=== PATIENT | male | born 1965 | race Caucasian/White ===

== ENCOUNTER 2018-07-18 01:26 | Emergency (ER) | payer OTHER ==
[2018-07-18 01:50] LABS: ADD MAN DIFF? NO
[2018-07-18 01:53] LABS: WHITE BLOOD COUNT 5.9 10^3/ul (4.8-10.8)
[2018-07-18 01:53] LABS: BASOPHIL # 0.1 10^3/ul (0.0-0.1); BASOPHILS % 0.8 % (0.0-2.0); EOSINOPHILS # 0.2 10^3/ul (0.0-0.5); EOSINOPHILS % 2.7 % (0.0-7.0); HEMATOCRIT 24.4 % (42.0-52.0); LYMPHOCYTES # 0.9 10^3/ul (0.8-2.9); LYMPHOCYTES % 15.8 % (15.0-51.0); MEAN CORPUSCULAR HEMOGLOBIN 28.1 pg (29.0-33.0); MEAN CORPUSCULAR HGB CONC 32.8 g/dl (32.0-37.0); MEAN CORPUSCULAR VOLUME 85.6 fl (82.0-101.0); MEAN PLATELET VOLUME 10.4 fl (7.4-10.4); MONOCYTE # 0.4 10^3/ul (0.3-0.9); NEUTROPHIL # 4.3 10^3/ul (1.6-7.5); NEUTROPHILS % 73.4 % (39.0-77.0); PLATELET COUNT 265 10^3/UL (140-415); RED BLOOD COUNT 2.85 10^6/ul (4.70-6.10); RED CELL DISTRIBUTION WIDTH 11.9 % (11.5-14.5)
[2018-07-18 02:13] LABS: ALANINE AMINOTRANSFERASE 21 IU/L (13-69); ALBUMIN 2.4 g/dl (3.3-4.9); ALKALINE PHOSPHATASE 53 IU/L (42-121); ANION GAP 5 (5-13); ASPARTATE AMINO TRANSFERASE 10 IU/L (15-46); BILIRUBIN,INDIRECT 0.2 mg/dl (0-1.1); BILIRUBIN,TOTAL 0.2 mg/dl (0.2-1.3); BLOOD UREA NITROGEN 69 mg/dl (7-20); CALCIUM 7.7 mg/dl (8.4-10.2); CARBON DIOXIDE 22 mmol/L (21-31); CHLORIDE 107 mmol/L (97-110); CREATININE 2.89 mg/dl (0.61-1.24); Estimated GFR 23 mL/min (>60); GLUCOSE 294 mg/dl (70-220); POTASSIUM 4.8 mmol/L (3.5-5.1); SODIUM 134 mmol/L (135-144); TOTAL PROTEIN 4.8 g/dl (6.1-8.1)
[2018-07-18 02:24] LABS: TROPONIN-I < 0.012 ng/ml (0.000-0.120)
[2018-07-18 03:17] LABS: URINE BLOOD (Dip) POC Trace-lysed (NEGATIVE); URINE KETONES (Dip) POC Negative (NEGATIVE); URINE LEUKOCYTE EST (Dip) POC Negative (NEGATIVE); URINE NITRITE (Dip) POC Negative (NEGATIVE); URINE TOTAL PROTEIN POC 3+ (NEGATIVE)
== END 2018-07-18 05:33 | disposition home or self-care (01) ==
LOC: E/R 01:26
DX: R55 Syncope and collapse (principal); I12.9 Hypertensive chronic kidney disease with stage 1 through stage 4 chronic kidney disease, or unspecified chronic kidney disease; N18.9 Chronic kidney disease, unspecified; E11.22 Type 2 diabetes mellitus with diabetic chronic kidney disease; Z79.84 Long term (current) use of oral hypoglycemic drugs
CPT/HCPCS: 36415; 70450; 71045; 80053; 81003; 82962; 84484; 85025; 93005; 99285-25

== ENCOUNTER 2018-07-19 14:46 | Inpatient (IN) | payer OTHER ==
[2018-07-19] MEDS: SOD CHLORIDE 0.9% 500 ML IV (15:03)
[2018-07-19] MEDS: ASPIRIN 325 MG TAB PO (15:03)
[2018-07-19] MEDS: DILTIAZEM-D5W 125MG/125ML DRIP 125 ML IV (15:16)
[2018-07-19] MEDS: DILTIAZEM 25 MG INJ IV (15:30)
[2018-07-19 16:10] LABS: ABNORMAL IP MESSAGE 1; HEMATOCRIT 11.9 % (42.0-52.0); MEAN CORPUSCULAR HEMOGLOBIN 28.5 pg (29.0-33.0); MEAN CORPUSCULAR HGB CONC 32.8 g/dl (32.0-37.0); MEAN CORPUSCULAR VOLUME 86.9 fl (82.0-101.0); PLATELET COUNT 352 10^3/UL (140-415); POSITIVE DIFF @See below; RED BLOOD COUNT 1.37 10^6/ul (4.70-6.10); RED CELL DISTRIBUTION WIDTH 12.2 % (11.5-14.5)
[2018-07-19 16:17] LABS: HEMOGLOBIN 3.9 g/dl (14.0-18.0)
[2018-07-19 16:18] LABS: ADD MAN DIFF? YES
[2018-07-19] MEDS: FAMOTIDINE 20 MG INJ IV (16:26)
[2018-07-19 16:31] LABS: INR 1.06; PROTIME 13.9 Sec (11.9-14.9); PT RATIO 1.1
[2018-07-19 16:32] LABS: PARTIAL THROMBOPLASTIN TIME 28.2 Sec (23.0-35.0)
[2018-07-19 16:34] LABS: ALANINE AMINOTRANSFERASE 23 IU/L (13-69); ALBUMIN 2.4 g/dl (3.3-4.9); ALKALINE PHOSPHATASE 49 IU/L (42-121); ANION GAP 8 (5-13); ASPARTATE AMINO TRANSFERASE 10 IU/L (15-46); BILIRUBIN,INDIRECT 0.1 mg/dl (0-1.1); BILIRUBIN,TOTAL 0.1 mg/dl (0.2-1.3); BLOOD UREA NITROGEN 102 mg/dl (7-20); CALCIUM 8.2 mg/dl (8.4-10.2); CARBON DIOXIDE 18 mmol/L (21-31); CHLORIDE 112 mmol/L (97-110); CREATINE KINASE 44 IU/L (23-200); CREATININE 2.67 mg/dl (0.61-1.24); D-DIMER 1124.24 ng/ml (<460); Estimated GFR 25 mL/min (>60); GLUCOSE 252 mg/dl (70-220); LIPASE 568 U/L (23-300); POTASSIUM 4.9 mmol/L (3.5-5.1); SODIUM 138 mmol/L (135-144); TOTAL PROTEIN 4.8 g/dl (6.1-8.1)
[2018-07-19 16:46] LABS: B-TYPE NATRIURETIC PEPTIDE 380 PG/ML (0-125); CK INDEX 1.6; CK-MB 0.69 ng/ml (0.0-2.4); TROPONIN-I < 0.012 ng/ml (0.000-0.120)
[2018-07-19 16:49] LABS: RETICULOCYTE COUNT # 0.038 X10^6 (0.020-0.110); RETICULOCYTE COUNT % 2.8 % (0.5-1.5)
[2018-07-19 16:49] LABS: RETICULOCYTE RBC 1.34
[2018-07-19 17:00] LABS: IRON 44 ug/dl (35-150)
[2018-07-19 17:00] LABS: LACTATE DEHYDROGENASE 342 IU/L (313-618)
[2018-07-19 17:09] LABS: % IRON SATURATION 22 % SAT (22-52); TOTAL IRON BINDING CAPACITY 204 ug/dl (241-421)
[2018-07-19 17:38] LABS: FERRITIN 60.6 ng/ml (11.1-264.0)
[2018-07-19 17:46] LABS: ETHANOL < 10.0 mg/dl (0-0)
[2018-07-19 18:05] LABS: BAND NEUTROPHILS #M 0.3 10^3/ul (0.0-0.6); BAND NEUTROPHILS % (M) 3 % (0-4); EOSINOPHILS # 0.3 10^3/ul (0.0-0.5); EOSINOPHILS % (M) 3 % (0.0-7.0); LYMPHOCYTES # 2.8 10^3/ul (0.8-2.9); LYMPHOCYTES #M 2.8 10^3/ul (0.8-2.9); LYMPHOCYTES % (M) 28 % (15-51); MONOCYTE # 0.4 10^3/ul (0.3-0.9); MONOCYTE #M 0.4 10^3/ul (0.3-0.9); MONOCYTES % (M) 4 % (0-11); SEG NEUT #M 6.2 10^3/ul (1.7-7.5); SEGMENTED NEUTROPHILS (M) % 62 % (39-77)
[2018-07-19 18:10] LABS: PLATELET ESTIMATE NORMAL
[2018-07-19] MEDS: PANTOPRAZOLE IV 80 MG in SOD CHLORIDE 0.9% 100 ML IVPB (18:21)
[2018-07-19] MEDS ORDERED: ALBUTEROL 0.083% (NEB) 2.5 MG/3 ML AMP NEB (18:30)
[2018-07-19] MEDS: PANTOPRAZOLE IV 80 MG in SOD CHLORIDE 0.9% 100 ML IV ×2 (18:30→18:46)
[2018-07-19] MEDS ORDERED: GLUCAGON 1 MG INJ IM (19:00)
[2018-07-19] MEDS ORDERED: DEXTROSE 50% 50 ML SYRINGE IV ×2 (19:00)
[2018-07-19] MEDS ORDERED: GLUCOSE GEL 15 GRAM TUBE BUCCAL (19:00)
[2018-07-19] MEDS ORDERED: GLUCOSE GEL 15 GRAM TUBE PO ×2 (19:00)
[2018-07-19] MEDS: DEXTROSE 5%-0.45% NACL 1,000 ML IV (19:47)
[2018-07-19 20:13] LABS: IMMEDIATE SPIN CROSSMATCH 1 7
[2018-07-19] MEDS: INSULIN ASPART [NOVOLOG] 3 ML PEN SC (21:43)
[2018-07-19] MEDS: FUROSEMIDE 20 MG INJ IV (22:35)
[2018-07-19 23:13] LABS: HEMATOCRIT 14.9 % (42.0-52.0)
[2018-07-19 23:21] LABS: HEMOGLOBIN 5.1 g/dl (14.0-18.0)
[2018-07-19 23:28] LABS: CREATINE KINASE 51 IU/L (23-200)
[2018-07-19 23:42] LABS: TROPONIN-I < 0.012 ng/ml (0.000-0.120)
[2018-07-20 01:00] LABS: CK INDEX 0.9; CK-MB 0.45 ng/ml (0.0-2.4)
[2018-07-20] MEDS: INSULIN ASPART [NOVOLOG] 3 ML PEN SC ×6 (01:27→21:51)
[2018-07-20] MEDS: PANTOPRAZOLE IV 80 MG in SOD CHLORIDE 0.9% 100 ML IV ×3 (01:35→23:11)
[2018-07-20] MEDS: DEXTROSE 5%-0.45% NACL 1,000 ML IV (04:12)
[2018-07-20 05:23] LABS: HEMATOCRIT 18.8 % (42.0-52.0)
[2018-07-20 05:27] LABS: HEMOGLOBIN 6.5 g/dl (14.0-18.0)
[2018-07-20 05:43] LABS: ALBUMIN 2.1 g/dl (3.3-4.9); ANION GAP 7 (5-13); BLOOD UREA NITROGEN 92 mg/dl (7-20); CALCIUM 7.7 mg/dl (8.4-10.2); CARBON DIOXIDE 18 mmol/L (21-31); CHLORIDE 117 mmol/L (97-110); CREATININE 2.53 mg/dl (0.61-1.24); GLUCOSE 188 mg/dl (70-220); MAGNESIUM 2.2 mg/dl (1.7-2.5); POTASSIUM 4.1 mmol/L (3.5-5.1); SODIUM 142 mmol/L (135-144)
[2018-07-20 05:55] LABS: CREATINE KINASE 60 IU/L (23-200)
[2018-07-20 05:57] LABS: CK INDEX 1.2; CK-MB 0.69 ng/ml (0.0-2.4); TROPONIN-I 0.012 ng/ml (0.000-0.120)
[2018-07-20] MEDS: SOD CHLORIDE 0.9% 1,000 ML IV ×3 (09:44→23:11)
[2018-07-20 10:15] LABS: HEMATOCRIT 21.6 % (42.0-52.0); HEMOGLOBIN 7.4 g/dl (14.0-18.0)
[2018-07-20 10:31] LABS: HEMOGLOBIN A1C 7.3 % (0-5.9)
[2018-07-20] MEDS: SOD CHLORIDE 0.9% 250 ML IV* (11:40)
[2018-07-20] MEDS: FENTAnyl 50 MCG/ML VIAL (16:31)
[2018-07-20] MEDS: PROPOFOL 20 ML (16:31)
[2018-07-20 17:13] LABS: HEMATOCRIT 24.1 % (42.0-52.0); HEMOGLOBIN 8.4 g/dl (14.0-18.0)
[2018-07-20 19:17] LABS: HEMATOCRIT 25.6 % (42.0-52.0); HEMOGLOBIN 8.8 g/dl (14.0-18.0)
[2018-07-20] MEDS: SUCRALFATE (100 MG/ML) 10ML CUP PO (21:40)
[2018-07-20] MEDS: INSULIN GLARGINE [LANTus] (100 UNITS/ML) SYG SC (21:41)
[2018-07-20 23:16] LABS: HEMATOCRIT 20.6 % (42.0-52.0); HEMOGLOBIN 7.1 g/dl (14.0-18.0)
[2018-07-21] MEDS: INSULIN ASPART [NOVOLOG] 3 ML PEN SC ×6 (01:09→20:43)
[2018-07-21 06:28] LABS: HEMOGLOBIN 8.2 g/dl (14.0-18.0)
[2018-07-21 06:37] LABS: ADD UMIC YES; UR ASCORBIC ACID NEGATIVE (NEGATIVE); UR BACTERIA FEW /HPF (NONE SEEN); UR BILIRUBIN (Dip) NEGATIVE (NEGATIVE); UR BLOOD (Dip) 1+ mg/dL (NEGATIVE); UR CLARITY CLEAR (CLEAR); UR COLOR YELLOW (YELLOW); UR GLUCOSE (Dip) 2+ mg/dL (NEGATIVE); UR KETONES (Dip) NEGATIVE (NEGATIVE); UR LEUKOCYTE ESTERASE (Dip) NEGATIVE Leu/ul (NEGATIVE); UR NITRITE (Dip) NEGATIVE (NEGATIVE); UR RBC 1 /HPF (0-5); UR SPECIFIC GRAVITY (Dip) 1.014 (1.003-1.030); UR TOTAL PROTEIN (Dip) 2+ mg/dl (NEGATIVE); UR UROBILINOGEN (Dip) NEGATIVE (NEGATIVE); UR WBC 1 /HPF (0-5)
[2018-07-21 06:55] LABS: ALBUMIN 2.4 g/dl (3.3-4.9); ANION GAP 4 (5-13); BLOOD UREA NITROGEN 60 mg/dl (7-20); CALCIUM 7.8 mg/dl (8.4-10.2); CARBON DIOXIDE 21 mmol/L (21-31); CHLORIDE 119 mmol/L (97-110); CREATININE 2.09 mg/dl (0.61-1.24); GLUCOSE 138 mg/dl (70-220); MAGNESIUM 2.1 mg/dl (1.7-2.5); PHOSPHORUS 3.4 mg/dl (2.5-4.9); POTASSIUM 4.5 mmol/L (3.5-5.1); SODIUM 144 mmol/L (135-144)
[2018-07-21 06:59] LABS: CREATININE,URINE RANDOM 59.84 mg/dl (20-370)
[2018-07-21 07:03] LABS: FREE T4 (FREE THYROXINE) 1.58 ng/dl (0.64-1.79)
[2018-07-21 07:05] LABS: PROTEIN/CREAT RATIO 5.04 RATIO
[2018-07-21 08:18] LABS: CARCINOEMBRYONIC ANTIGEN 0.4 ng/ml (0.0-5.0)
[2018-07-21] MEDS: SUCRALFATE (100 MG/ML) 10ML CUP PO ×4 (09:50→20:41)
[2018-07-21] MEDS: PANTOPRAZOLE IV 80 MG in SOD CHLORIDE 0.9% 100 ML IV ×2 (09:58→20:49)
[2018-07-21] MEDS: SOD CHLORIDE 0.9% 1,000 ML IV (09:58)
[2018-07-21 11:51] LABS: TRANSFERRIN 139 mg/dL (188-341)
[2018-07-21 12:43] LABS: HEMATOCRIT 25.7 % (42.0-52.0); HEMOGLOBIN 8.9 g/dl (14.0-18.0)
[2018-07-21] MEDS: SOD FERRIC GLUC COMPLX 125 MG in SOD CHLORIDE 0.9% 100 ML IVPB (13:12)
[2018-07-21 18:35] LABS: HEMATOCRIT 23.9 % (42.0-52.0); HEMOGLOBIN 8.3 g/dl (14.0-18.0)
[2018-07-21] MEDS: INSULIN GLARGINE [LANTus] (100 UNITS/ML) SYG SC (20:47)
[2018-07-21] MEDS: LORAZEPAM 2 MG INJ IV (21:21)
[2018-07-22 01:00] LABS: HEMATOCRIT 22.6 % (42.0-52.0); HEMOGLOBIN 7.7 g/dl (14.0-18.0)
[2018-07-22] MEDS: SOD CHLORIDE 0.9% 1,000 ML IV ×3 (01:21→21:41)
[2018-07-22] MEDS: INSULIN ASPART [NOVOLOG] 3 ML PEN SC ×6 (01:25→21:01)
[2018-07-22 06:21] LABS: ADD MAN DIFF? NO
[2018-07-22 06:29] LABS: WHITE BLOOD COUNT 5.2 10^3/ul (4.8-10.8)
[2018-07-22 06:29] LABS: BASOPHILS % 0.6 % (0.0-2.0); EOSINOPHILS # 0.2 10^3/ul (0.0-0.5); EOSINOPHILS % 2.9 % (0.0-7.0); HEMATOCRIT 22.8 % (42.0-52.0); HEMOGLOBIN 7.8 g/dl (14.0-18.0); LYMPHOCYTES # 0.7 10^3/ul (0.8-2.9); LYMPHOCYTES % 12.9 % (15.0-51.0); MEAN CORPUSCULAR HEMOGLOBIN 29.2 pg (29.0-33.0); MEAN CORPUSCULAR HGB CONC 34.2 g/dl (32.0-37.0); MEAN CORPUSCULAR VOLUME 85.4 fl (82.0-101.0); MEAN PLATELET VOLUME 10.5 fl (7.4-10.4); MONOCYTE # 0.4 10^3/ul (0.3-0.9); MONOCYTES % 7.7 % (0.0-11.0); NEUTROPHIL # 3.9 10^3/ul (1.6-7.5); NEUTROPHILS % 75.5 % (39.0-77.0); PLATELET COUNT 235 10^3/UL (140-415); RED BLOOD COUNT 2.67 10^6/ul (4.70-6.10); RED CELL DISTRIBUTION WIDTH 14.3 % (11.5-14.5)
[2018-07-22 07:02] LABS: ALBUMIN 2.2 g/dl (3.3-4.9); ANION GAP 3 (5-13); BLOOD UREA NITROGEN 38 mg/dl (7-20); CALCIUM 7.7 mg/dl (8.4-10.2); CARBON DIOXIDE 21 mmol/L (21-31); CHLORIDE 120 mmol/L (97-110); CREATININE 1.88 mg/dl (0.61-1.24); GLUCOSE 112 mg/dl (70-220); MAGNESIUM 2.1 mg/dl (1.7-2.5); PHOSPHORUS 3.7 mg/dl (2.5-4.9); POTASSIUM 3.9 mmol/L (3.5-5.1); SODIUM 144 mmol/L (135-144)
[2018-07-22 07:23] LABS: ANION GAP 3 (5-13); BLOOD UREA NITROGEN 38 mg/dl (7-20); CALCIUM 7.8 mg/dl (8.4-10.2); CARBON DIOXIDE 21 mmol/L (21-31); CHLORIDE 120 mmol/L (97-110); CREATININE 1.87 mg/dl (0.61-1.24); Estimated GFR 38 mL/min (>60); GLUCOSE 109 mg/dl (70-220); POTASSIUM 3.9 mmol/L (3.5-5.1); SODIUM 144 mmol/L (135-144)
[2018-07-22] MEDS: SUCRALFATE (100 MG/ML) 10ML CUP PO ×4 (09:09→21:01)
[2018-07-22] MEDS: PANTOPRAZOLE IV 80 MG in SOD CHLORIDE 0.9% 100 ML IV (11:06)
[2018-07-22 11:54] LABS: HEMATOCRIT 23.5 % (42.0-52.0)
[2018-07-22] MEDS: SOD FERRIC GLUC COMPLX 125 MG in SOD CHLORIDE 0.9% 100 ML IVPB (12:16)
[2018-07-22] MEDS: PANTOPRAZOLE 40 MG INJ IV (17:19)
[2018-07-22 18:19] LABS: HEMATOCRIT 23.8 % (42.0-52.0)
[2018-07-22 18:40] LABS: PROTIME 13.3 Sec (11.9-14.9)
[2018-07-22] MEDS: INSULIN GLARGINE [LANTus] (100 UNITS/ML) SYG SC (19:43)
[2018-07-22] MEDS: LABETALOL HCL 20MG INJ IV (20:42)
[2018-07-22] MEDS: morphine 2 MG INJ IV (23:14)
[2018-07-23] MEDS: INSULIN ASPART [NOVOLOG] 3 ML PEN SC ×7 (00:43→20:52)
[2018-07-23 00:51] LABS: HEMATOCRIT 21.7 % (42.0-52.0); HEMOGLOBIN 7.4 g/dl (14.0-18.0)
[2018-07-23 05:35] LABS: ADD MAN DIFF? NO
[2018-07-23] MEDS: PANTOPRAZOLE 40 MG INJ IV ×2 (05:35→17:49)
[2018-07-23 05:59] LABS: WHITE BLOOD COUNT 8.3 10^3/ul (4.8-10.8)
[2018-07-23 05:59] LABS: BASOPHILS % 0.5 % (0.0-2.0); EOSINOPHILS # 0.1 10^3/ul (0.0-0.5); EOSINOPHILS % 1.1 % (0.0-7.0); HEMATOCRIT 25.4 % (42.0-52.0); HEMOGLOBIN 8.5 g/dl (14.0-18.0); LYMPHOCYTES # 0.7 10^3/ul (0.8-2.9); LYMPHOCYTES % 7.8 % (15.0-51.0); MEAN CORPUSCULAR HGB CONC 33.5 g/dl (32.0-37.0); MEAN CORPUSCULAR VOLUME 86.7 fl (82.0-101.0); MEAN PLATELET VOLUME 10.7 fl (7.4-10.4); MONOCYTE # 0.4 10^3/ul (0.3-0.9); MONOCYTES % 5.3 % (0.0-11.0); NEUTROPHIL # 7.1 10^3/ul (1.6-7.5); NEUTROPHILS % 85.1 % (39.0-77.0); PLATELET COUNT 259 10^3/UL (140-415); RED BLOOD COUNT 2.93 10^6/ul (4.70-6.10)
[2018-07-23 06:19] LABS: ANION GAP 4 (5-13); BLOOD UREA NITROGEN 29 mg/dl (7-20); CALCIUM 7.7 mg/dl (8.4-10.2); CARBON DIOXIDE 19 mmol/L (21-31); CHLORIDE 118 mmol/L (97-110); CREATININE 1.89 mg/dl (0.61-1.24); Estimated GFR 38 mL/min (>60); GLUCOSE 163 mg/dl (70-220); MAGNESIUM 1.9 mg/dl (1.7-2.5); PHOSPHORUS 3.6 mg/dl (2.5-4.9); POTASSIUM 3.8 mmol/L (3.5-5.1); SODIUM 141 mmol/L (135-144)
[2018-07-23] MEDS: SOD CHLORIDE 0.9% 1,000 ML IV (07:30)
[2018-07-23] MEDS: SUCRALFATE (100 MG/ML) 10ML CUP PO ×4 (08:37→20:32)
[2018-07-23] MEDS ORDERED: POLYMYXIN/BACITRACIN 1L IRRIG (09:42)
[2018-07-23] MEDS ORDERED: HEPARIN 1000 UNITS/ML 10 ML INJ (09:47)
[2018-07-23] MEDS ORDERED: LIDOCAINE 1% (MDV) 20 ML INJ ×2 (09:47→12:59)
[2018-07-23] MEDS ORDERED: LIDOCAINE 1%/EPI (1:100,000) (MDV) 20 ML (09:48)
[2018-07-23 11:32] LABS: HEMATOCRIT 25.2 % (42.0-52.0); HEMOGLOBIN 8.5 g/dl (14.0-18.0)
[2018-07-23] MEDS ORDERED: FENTAnyl 50 MCG/ML VIAL (12:45)
[2018-07-23] MEDS ORDERED: MIDAZOLAM 1 MG/ML 2 ML INJ (12:45)
[2018-07-23] MEDS: SOD FERRIC GLUC COMPLX 125 MG in SOD CHLORIDE 0.9% 100 ML IVPB (14:08)
[2018-07-23] MEDS: LABETALOL HCL 20MG INJ IV ×2 (14:09→20:32)
[2018-07-23 19:52] LABS: HEMATOCRIT 24.8 % (42.0-52.0); HEMOGLOBIN 8.4 g/dl (14.0-18.0)
[2018-07-23] MEDS: INSULIN GLARGINE [LANTus] (100 UNITS/ML) SYG SC (20:34)
[2018-07-24 01:02] LABS: HEMATOCRIT 22.3 % (42.0-52.0); HEMOGLOBIN 7.6 g/dl (14.0-18.0)
[2018-07-24] MEDS: hydrALAzine 20 MG INJ IV ×2 (01:42→09:35)
[2018-07-24] MEDS: morphine 2 MG INJ IV (01:42)
[2018-07-24 05:05] LABS: ADD MAN DIFF? NO
[2018-07-24 05:11] LABS: BASOPHILS % 0.3 % (0.0-2.0); EOSINOPHILS # 0.1 10^3/ul (0.0-0.5); EOSINOPHILS % 1.6 % (0.0-7.0); HEMATOCRIT 24.1 % (42.0-52.0); HEMOGLOBIN 8.2 g/dl (14.0-18.0); LYMPHOCYTES # 0.9 10^3/ul (0.8-2.9); LYMPHOCYTES % 12.2 % (15.0-51.0); MEAN CORPUSCULAR HEMOGLOBIN 29.1 pg (29.0-33.0); MEAN CORPUSCULAR VOLUME 85.5 fl (82.0-101.0); MEAN PLATELET VOLUME 10.7 fl (7.4-10.4); MONOCYTE # 0.6 10^3/ul (0.3-0.9); MONOCYTES % 7.5 % (0.0-11.0); NEUTROPHIL # 5.8 10^3/ul (1.6-7.5); PLATELET COUNT 225 10^3/UL (140-415); RED BLOOD COUNT 2.82 10^6/ul (4.70-6.10); RED CELL DISTRIBUTION WIDTH 14.6 % (11.5-14.5)
[2018-07-24 05:11] LABS: WHITE BLOOD COUNT 7.4 10^3/ul (4.8-10.8)
[2018-07-24 05:32] LABS: ANION GAP 4 (5-13); BLOOD UREA NITROGEN 29 mg/dl (7-20); CALCIUM 7.8 mg/dl (8.4-10.2); CARBON DIOXIDE 19 mmol/L (21-31); CHLORIDE 117 mmol/L (97-110); Estimated GFR 38 mL/min (>60); GLUCOSE 171 mg/dl (70-220); PHOSPHORUS 3.5 mg/dl (2.5-4.9); POTASSIUM 3.9 mmol/L (3.5-5.1); SODIUM 140 mmol/L (135-144)
[2018-07-24] MEDS: PANTOPRAZOLE 40 MG INJ IV ×2 (05:56→18:02)
[2018-07-24] MEDS: INSULIN ASPART [NOVOLOG] 3 ML PEN SC ×4 (08:28→20:31)
[2018-07-24] MEDS: NA BICARBONATE 650 MG TAB PO ×2 (09:19→20:25)
[2018-07-24] MEDS: SUCRALFATE (100 MG/ML) 10ML CUP PO ×4 (09:19→20:25)
[2018-07-24] MEDS: AMLODIPINE 10 MG TAB PO (10:55)
[2018-07-24] MEDS: LABETALOL HCL 20MG INJ IV (11:25)
[2018-07-24 13:03] LABS: HEMATOCRIT 25.3 % (42.0-52.0); HEMOGLOBIN 8.5 g/dl (14.0-18.0)
[2018-07-24] MEDS: SOD FERRIC GLUC COMPLX 125 MG in SOD CHLORIDE 0.9% 100 ML IVPB (14:09)
[2018-07-24 18:15] LABS: HEMOGLOBIN 8.9 g/dl (14.0-18.0)
[2018-07-24] MEDS: INSULIN GLARGINE [LANTus] (100 UNITS/ML) SYG SC (20:30)
[2018-07-25 00:56] LABS: HEMOGLOBIN 7.4 g/dl (14.0-18.0)
[2018-07-25] MEDS: PANTOPRAZOLE 40 MG INJ IV (06:07)
[2018-07-25] MEDS ORDERED: DESFLURANE 15 MIN (07:00)
[2018-07-25] MEDS: INSULIN ASPART [NOVOLOG] 3 ML PEN SC ×4 (07:50→20:48)
[2018-07-25] MEDS: morphine 2 MG INJ IV (08:02)
[2018-07-25] MEDS: ONDANSETRON 4 MG INJ IV ×3 (09:05→10:49)
[2018-07-25] MEDS: SUCRALFATE (100 MG/ML) 10ML CUP PO ×4 (09:06→20:50)
[2018-07-25] MEDS: AMLODIPINE 10 MG TAB PO (09:06)
[2018-07-25] MEDS: NA BICARBONATE 650 MG TAB PO ×2 (09:06→20:48)
[2018-07-25 09:53] LABS: HEMATOCRIT 19.4 % (42.0-52.0)
[2018-07-25 10:04] LABS: HEMOGLOBIN 6.5 g/dl (14.0-18.0)
[2018-07-25] MEDS: SOD CHLORIDE 0.9% 1,000 ML IV ×3 (11:51→22:31)
[2018-07-25] MEDS: SOD FERRIC GLUC COMPLX 125 MG in SOD CHLORIDE 0.9% 100 ML IVPB (12:22)
[2018-07-25] MEDS: PANTOPRAZOLE IV 80 MG in SOD CHLORIDE 0.9% 100 ML IV ×2 (12:22→22:20)
[2018-07-25] MEDS ORDERED: SUCCINYLCHOLINE CHLORIDE 100 MG/5 ML SYG IV (13:41)
[2018-07-25] MEDS ORDERED: PROPOFOL 20 ML (13:41)
[2018-07-25] MEDS: OCTREOTIDE 1 MG in DEXTROSE 5% 95 ML IV (15:16)
[2018-07-25] MEDS ORDERED: MIDAZOLAM 1 MG/ML 2 ML INJ (16:56)
[2018-07-25] MEDS ORDERED: FENTAnyl 50 MCG/ML VIAL (16:56)
[2018-07-25 18:29] LABS: HEMATOCRIT 21.5 % (42.0-52.0); HEMOGLOBIN 7.1 g/dl (14.0-18.0)
[2018-07-25 18:34] LABS: PLATELET COUNT 252 10^3/UL (140-415)
[2018-07-25 18:44] LABS: IMMEDIATE SPIN CROSSMATCH 1 5
[2018-07-25 18:50] LABS: INR 1.13; PROTIME 14.6 Sec (11.9-14.9); PT RATIO 1.1; THROMBIN TIME 16.2 SEC (13.8-19.1)
[2018-07-25 18:51] LABS: PARTIAL THROMBOPLASTIN TIME 35.3 Sec (23.0-35.0)
[2018-07-25] MEDS ORDERED: LORAZEPAM 2 MG INJ IV (19:00)
[2018-07-25] MEDS: SOD CHLORIDE 0.9% 250 ML IV* (19:07)
[2018-07-25] MEDS: INSULIN GLARGINE [LANTus] (100 UNITS/ML) SYG SC (20:51)
[2018-07-25 22:39] LABS: IMMEDIATE SPIN CROSSMATCH 1
[2018-07-26 02:11] LABS: ADD MAN DIFF? NO
[2018-07-26 02:14] LABS: WHITE BLOOD COUNT 4.7 10^3/ul (4.8-10.8)
[2018-07-26 02:14] LABS: BASOPHILS % 0.6 % (0.0-2.0); EOSINOPHILS # 0.1 10^3/ul (0.0-0.5); EOSINOPHILS % 1.5 % (0.0-7.0); HEMATOCRIT 20.7 % (42.0-52.0); LYMPHOCYTES # 0.7 10^3/ul (0.8-2.9); LYMPHOCYTES % 15.8 % (15.0-51.0); MEAN CORPUSCULAR HEMOGLOBIN 29.3 pg (29.0-33.0); MEAN CORPUSCULAR HGB CONC 33.8 g/dl (32.0-37.0); MEAN CORPUSCULAR VOLUME 86.6 fl (82.0-101.0); MEAN PLATELET VOLUME 10.2 fl (7.4-10.4); MONOCYTE # 0.4 10^3/ul (0.3-0.9); MONOCYTES % 8.4 % (0.0-11.0); NEUTROPHIL # 3.4 10^3/ul (1.6-7.5); NEUTROPHILS % 72.6 % (39.0-77.0); PLATELET COUNT 212 10^3/UL (140-415); RED BLOOD COUNT 2.39 10^6/ul (4.70-6.10); RED CELL DISTRIBUTION WIDTH 15.3 % (11.5-14.5)
[2018-07-26 02:39] LABS: ANION GAP 4 (5-13); CALCIUM 7.3 mg/dl (8.4-10.2); CARBON DIOXIDE 19 mmol/L (21-31); CHLORIDE 119 mmol/L (97-110); Estimated GFR 26 mL/min (>60); GLUCOSE 150 mg/dl (70-220); MAGNESIUM 1.9 mg/dl (1.7-2.5); PHOSPHORUS 5.2 mg/dl (2.5-4.9); POTASSIUM 4.2 mmol/L (3.5-5.1); SODIUM 142 mmol/L (135-144)
[2018-07-26 02:42] LABS: BLOOD UREA NITROGEN 47 mg/dl (7-20)
[2018-07-26] MEDS: SOD CHLORIDE 0.9% 1,000 ML IV ×4 (05:37→20:21)
[2018-07-26 08:14] LABS: IRON 71 ug/dl (35-150)
[2018-07-26] MEDS: OCTREOTIDE 1 MG in DEXTROSE 5% 95 ML IV (08:22)
[2018-07-26 08:23] LABS: % IRON SATURATION 40 % SAT (22-52); TOTAL IRON BINDING CAPACITY 178 ug/dl (241-421)
[2018-07-26] MEDS: PANTOPRAZOLE IV 80 MG in SOD CHLORIDE 0.9% 100 ML IV ×2 (08:23→18:38)
[2018-07-26] MEDS: SUCRALFATE (100 MG/ML) 10ML CUP PO ×4 (08:25→20:29)
[2018-07-26] MEDS: NA BICARBONATE 650 MG TAB PO ×2 (08:25→20:30)
[2018-07-26] MEDS: SOD CHLORIDE 0.9% 250 ML IV* ×2 (08:25→10:35)
[2018-07-26] MEDS: INSULIN ASPART [NOVOLOG] 3 ML PEN SC ×4 (08:29→20:30)
[2018-07-26 10:26] LABS: IMMEDIATE SPIN CROSSMATCH 1
[2018-07-26] MEDS: FUROSEMIDE 40 MG INJ IV (12:09)
[2018-07-26 13:14] LABS: IMMEDIATE SPIN CROSSMATCH 1 2
[2018-07-26 18:03] LABS: HEMATOCRIT 24.1 % (42.0-52.0); HEMOGLOBIN 8.2 g/dl (14.0-18.0)
[2018-07-26] MEDS: INSULIN GLARGINE [LANTus] (100 UNITS/ML) SYG SC (20:31)
[2018-07-27] MEDS: ACETAMINOPHEN 650 MG SUPP PR (00:01)
[2018-07-27 01:00] LABS: HEMATOCRIT 22.6 % (42.0-52.0); HEMOGLOBIN 7.8 g/dl (14.0-18.0)
[2018-07-27] MEDS: SOD CHLORIDE 0.9% 1,000 ML IV ×3 (02:49→13:04)
[2018-07-27] MEDS: OCTREOTIDE 1 MG in DEXTROSE 5% 95 ML IV (05:23)
[2018-07-27] MEDS: PANTOPRAZOLE IV 80 MG in SOD CHLORIDE 0.9% 100 ML IV ×2 (05:23→16:36)
[2018-07-27 05:49] LABS: ADD MAN DIFF? NO
[2018-07-27 06:07] LABS: WHITE BLOOD COUNT 5.6 10^3/ul (4.8-10.8)
[2018-07-27 06:08] LABS: BASOPHILS % 0.5 % (0.0-2.0); EOSINOPHILS # 0.2 10^3/ul (0.0-0.5); EOSINOPHILS % 3.6 % (0.0-7.0); HEMATOCRIT 24.2 % (42.0-52.0); HEMOGLOBIN 8.2 g/dl (14.0-18.0); LYMPHOCYTES # 0.7 10^3/ul (0.8-2.9); LYMPHOCYTES % 12.9 % (15.0-51.0); MEAN CORPUSCULAR HEMOGLOBIN 29.5 pg (29.0-33.0); MEAN CORPUSCULAR HGB CONC 33.9 g/dl (32.0-37.0); MEAN CORPUSCULAR VOLUME 87.1 fl (82.0-101.0); MEAN PLATELET VOLUME 10.9 fl (7.4-10.4); MONOCYTE # 0.4 10^3/ul (0.3-0.9); MONOCYTES % 7.9 % (0.0-11.0); NEUTROPHIL # 4.1 10^3/ul (1.6-7.5); NEUTROPHILS % 74.4 % (39.0-77.0); PLATELET COUNT 263 10^3/UL (140-415); RED BLOOD COUNT 2.78 10^6/ul (4.70-6.10); RED CELL DISTRIBUTION WIDTH 14.6 % (11.5-14.5)
[2018-07-27 06:47] LABS: ANION GAP 5 (5-13); BLOOD UREA NITROGEN 43 mg/dl (7-20); CALCIUM 7.4 mg/dl (8.4-10.2); CARBON DIOXIDE 21 mmol/L (21-31); CHLORIDE 118 mmol/L (97-110); CREATININE 2.15 mg/dl (0.61-1.24); Estimated GFR 33 mL/min (>60); GLUCOSE 124 mg/dl (70-220); MAGNESIUM 1.9 mg/dl (1.7-2.5); POTASSIUM 3.8 mmol/L (3.5-5.1); SODIUM 144 mmol/L (135-144)
[2018-07-27] MEDS: INSULIN ASPART [NOVOLOG] 3 ML PEN SC ×4 (07:35→20:30)
[2018-07-27] MEDS: SUCRALFATE (100 MG/ML) 10ML CUP PO ×4 (08:19→20:30)
[2018-07-27] MEDS: NA BICARBONATE 650 MG TAB PO ×2 (08:20→20:30)
[2018-07-27] MEDS ORDERED: DIPHENHYDRAMINE 50 MG INJ IV (13:00)
[2018-07-27] MEDS ORDERED: MEPERIDINE 25 MG INJ IV (13:00)
[2018-07-27] MEDS: hydrALAzine 20 MG INJ IV (13:00)
[2018-07-27] MEDS ORDERED: DEXAMETHASONE 4 MG/ML 1 ML INJ IV (13:00)
[2018-07-27] MEDS: FAMOTIDINE 20 MG INJ IV (20:28)
[2018-07-27] MEDS: ONDANSETRON INJ 16 MG, DEXAMETHASONE 4 MG/ML 20 MG in DEXTROSE 5% 50 ML IV (20:29)
[2018-07-27] MEDS: INSULIN GLARGINE [LANTus] (100 UNITS/ML) SYG SC (20:35)
[2018-07-27] MEDS: DEXTROSE 5% IV ×2 (20:56→21:18)
[2018-07-27] MEDS: LEUCOVORIN CALCIUM IV (20:56)
[2018-07-27] MEDS: OXALIPLATIN IV (21:18)
[2018-07-27] MEDS: LABETALOL HCL 20MG INJ IV (21:23)
[2018-07-28] MEDS: DOCETAXEL IV (00:41)
[2018-07-28] MEDS: SOD CHLORIDE 0.9% IV (00:41)
[2018-07-28] MEDS: OCTREOTIDE 1 MG in DEXTROSE 5% 95 ML IV (02:50)
[2018-07-28] MEDS: PANTOPRAZOLE IV 80 MG in SOD CHLORIDE 0.9% 100 ML IV ×2 (02:50)
[2018-07-28] MEDS: SOD CHLORIDE 0.9% 1,000 ML IV (02:51)
[2018-07-28 03:03] LABS: ABNORMAL IP MESSAGE 1; HEMATOCRIT 24.4 % (42.0-52.0); HEMOGLOBIN 8.3 g/dl (14.0-18.0); MEAN CORPUSCULAR HEMOGLOBIN 29.7 pg (29.0-33.0); MEAN CORPUSCULAR VOLUME 87.5 fl (82.0-101.0); MEAN PLATELET VOLUME 10.5 fl (7.4-10.4); PLATELET COUNT 269 10^3/UL (140-415); POSITIVE DIFF @See below; RED BLOOD COUNT 2.79 10^6/ul (4.70-6.10); RED CELL DISTRIBUTION WIDTH 14.5 % (11.5-14.5)
[2018-07-28 03:03] LABS: WHITE BLOOD COUNT 5.2 10^3/ul (4.8-10.8)
[2018-07-28] MEDS: DEXTROSE 5% IV (03:07)
[2018-07-28] MEDS: FLUOROURACIL IV (03:07)
[2018-07-28 03:10] LABS: ADD MAN DIFF? YES
[2018-07-28 03:24] LABS: ALANINE AMINOTRANSFERASE 26 IU/L (13-69); ALBUMIN 2.2 g/dl (3.3-4.9); ALBUMIN/GLOBULIN RATIO 0.88; ALKALINE PHOSPHATASE 53 IU/L (42-121); ANION GAP 7 (5-13); ASPARTATE AMINO TRANSFERASE 12 IU/L (15-46); BILIRUBIN,INDIRECT 0.3 mg/dl (0-1.1); BILIRUBIN,TOTAL 0.3 mg/dl (0.2-1.3); BLOOD UREA NITROGEN 35 mg/dl (7-20); CALCIUM 7.3 mg/dl (8.4-10.2); CARBON DIOXIDE 19 mmol/L (21-31); CHLORIDE 117 mmol/L (97-110); CREATININE 1.87 mg/dl (0.61-1.24); Estimated GFR 38 mL/min (>60); GLUCOSE 173 mg/dl (70-220); MAGNESIUM 1.8 mg/dl (1.7-2.5); PHOSPHORUS 3.3 mg/dl (2.5-4.9); POTASSIUM 3.9 mmol/L (3.5-5.1); SODIUM 143 mmol/L (135-144); TOTAL PROTEIN 4.7 g/dl (6.1-8.1)
[2018-07-28 03:54] LABS: ANISOCYTOSIS 1+ (0-0); BAND NEUTROPHILS #M 0.4 10^3/ul (0.0-0.6); BAND NEUTROPHILS % (M) 8 % (0-4); LYMPHOCYTES #M 0.1 10^3/ul (0.8-2.9); LYMPHOCYTES % (M) 3 % (15-51); MICROCYTOSIS 1+ (0-0); PLATELET ESTIMATE NORMAL; POLYCHROMASIA 1+ (0-0); SEG NEUT #M 4.6 10^3/ul (1.6-7.5); SEGMENTED NEUTROPHILS (M) % 89 % (39-77); SMUDGE%M 15 % (0-0)
[2018-07-28] MEDS: INSULIN ASPART [NOVOLOG] 3 ML PEN SC ×4 (07:47→20:23)
[2018-07-28] MEDS: NA BICARBONATE 650 MG TAB PO ×2 (08:22→18:30)
[2018-07-28] MEDS: SUCRALFATE (100 MG/ML) 10ML CUP PO ×4 (08:22→20:20)
[2018-07-28] MEDS: AMLODIPINE 10 MG TAB PO (08:22)
[2018-07-28] MEDS: PANTOPRAZOLE 40 MG INJ IV (17:24)
[2018-07-28] MEDS: INSULIN GLARGINE [LANTus] (100 UNITS/ML) SYG SC (20:22)
[2018-07-29] MEDS: PANTOPRAZOLE 40 MG INJ IV (05:17)
[2018-07-29 05:41] LABS: ADD MAN DIFF? NO
[2018-07-29 05:43] LABS: ABNORMAL IP MESSAGE 1; HEMATOCRIT 23.3 % (42.0-52.0); LYMPHOCYTES # 0.6 10^3/ul (0.8-2.9); LYMPHOCYTES % 8.2 % (15.0-51.0); MEAN CORPUSCULAR HEMOGLOBIN 29.7 pg (29.0-33.0); MEAN CORPUSCULAR HGB CONC 34.3 g/dl (32.0-37.0); MEAN CORPUSCULAR VOLUME 86.6 fl (82.0-101.0); MEAN PLATELET VOLUME 10.9 fl (7.4-10.4); MONOCYTE # 0.3 10^3/ul (0.3-0.9); NEUTROPHIL # 6.1 10^3/ul (1.6-7.5); NEUTROPHILS % 87.2 % (39.0-77.0); PLATELET COUNT 283 10^3/UL (140-415); POSITIVE DIFF @See below; RED BLOOD COUNT 2.69 10^6/ul (4.70-6.10); RED CELL DISTRIBUTION WIDTH 14.1 % (11.5-14.5)
[2018-07-29 06:13] LABS: ANION GAP 4 (5-13); BLOOD UREA NITROGEN 37 mg/dl (7-20); CARBON DIOXIDE 20 mmol/L (21-31); CHLORIDE 116 mmol/L (97-110); CREATININE 1.95 mg/dl (0.61-1.24); Estimated GFR 37 mL/min (>60); GLUCOSE 174 mg/dl (70-220); MAGNESIUM 1.9 mg/dl (1.7-2.5); PHOSPHORUS 2.9 mg/dl (2.5-4.9); POTASSIUM 3.6 mmol/L (3.5-5.1); SODIUM 140 mmol/L (135-144)
[2018-07-29] MEDS: GUAIFENESIN/DM 5ML CUP PO ×3 (06:49→21:53)
[2018-07-29] MEDS: SUCRALFATE (100 MG/ML) 10ML CUP PO ×2 (07:20→09:42)
[2018-07-29] MEDS: INSULIN ASPART [NOVOLOG] 3 ML PEN SC ×4 (07:50→21:00)
[2018-07-29] MEDS: AMLODIPINE 10 MG TAB PO (09:43)
[2018-07-29] MEDS: 1/2 NS + KCL 20 MEQ 1,000 ML IV (09:48)
[2018-07-29] MEDS: NA BICARBONATE 650 MG TAB PO ×2 (10:44→18:55)
[2018-07-29] MEDS: SUCRALFATE 1 GM TAB PO ×3 (13:06→21:11)
[2018-07-29] MEDS: PANTOPRAZOLE (EC) 40 MG TAB PO (17:47)
[2018-07-29] MEDS: INSULIN GLARGINE [LANTus] (100 UNITS/ML) SYG SC (21:13)
[2018-07-30] MEDS: 1/2 NS + KCL 20 MEQ 1,000 ML IV (00:13)
[2018-07-30 05:17] LABS: ADD MAN DIFF? NO
[2018-07-30 05:26] LABS: WHITE BLOOD COUNT 5.8 10^3/ul (4.8-10.8)
[2018-07-30 05:26] LABS: BASOPHILS % 0.3 % (0.0-2.0); EOSINOPHILS # 0.1 10^3/ul (0.0-0.5); EOSINOPHILS % 1.2 % (0.0-7.0); HEMATOCRIT 24.8 % (42.0-52.0); HEMOGLOBIN 8.5 g/dl (14.0-18.0); LYMPHOCYTES # 0.7 10^3/ul (0.8-2.9); LYMPHOCYTES % 12.3 % (15.0-51.0); MEAN CORPUSCULAR HEMOGLOBIN 29.3 pg (29.0-33.0); MEAN CORPUSCULAR HGB CONC 34.3 g/dl (32.0-37.0); MEAN CORPUSCULAR VOLUME 85.5 fl (82.0-101.0); MEAN PLATELET VOLUME 10.9 fl (7.4-10.4); MONOCYTE # 0.2 10^3/ul (0.3-0.9); MONOCYTES % 2.8 % (0.0-11.0); NEUTROPHIL # 4.8 10^3/ul (1.6-7.5); NEUTROPHILS % 83.1 % (39.0-77.0); PLATELET COUNT 333 10^3/UL (140-415); RED CELL DISTRIBUTION WIDTH 14.2 % (11.5-14.5)
[2018-07-30 05:47] LABS: ALANINE AMINOTRANSFERASE 27 IU/L (13-69); ALBUMIN 2.1 g/dl (3.3-4.9); ALBUMIN/GLOBULIN RATIO 0.91; ALKALINE PHOSPHATASE 53 IU/L (42-121); ANION GAP 4 (5-13); ASPARTATE AMINO TRANSFERASE 25 IU/L (15-46); BILIRUBIN,INDIRECT 0.3 mg/dl (0-1.1); BILIRUBIN,TOTAL 0.3 mg/dl (0.2-1.3); BLOOD UREA NITROGEN 36 mg/dl (7-20); CALCIUM 7.1 mg/dl (8.4-10.2); CARBON DIOXIDE 21 mmol/L (21-31); CHLORIDE 115 mmol/L (97-110); CREATININE 1.93 mg/dl (0.61-1.24); Estimated GFR 37 mL/min (>60); GLUCOSE 63 mg/dl (70-220); POTASSIUM 3.5 mmol/L (3.5-5.1); SODIUM 140 mmol/L (135-144); TOTAL PROTEIN 4.4 g/dl (6.1-8.1)
[2018-07-30] MEDS: PANTOPRAZOLE (EC) 40 MG TAB PO (06:33)
[2018-07-30] MEDS: SUCRALFATE 1 GM TAB PO ×2 (07:49→11:26)
[2018-07-30] MEDS: INSULIN ASPART [NOVOLOG] 3 ML PEN SC ×2 (09:10→13:17)
[2018-07-30] MEDS: NA BICARBONATE 650 MG TAB PO (09:11)
[2018-07-30] MEDS: AMLODIPINE 10 MG TAB PO (09:12)
[2018-07-30] MEDS: POTASSIUM CHLORIDE (SR) 20 MEQ TAB PO (09:36)
[2018-07-30] MEDS: HEPARIN (100 UNITS/ML) 5 ML SYG CATHETER (16:19)
== END 2018-07-30 17:05 | disposition home or self-care (01) | DRG 981 ==
LOC: MS1 07-24 13:39 → ICU 07-25 11:00 → MS1 07-28 15:02 → E/R 14:46 → ICU 17:28
PROVIDERS: Internal Medicine
PROC: 0DD68ZX Extraction of Stomach, Via Natural or Artificial Opening Endoscopic, Diagnostic (ICD-10-PCS; principal; 2018-07-20 16:05)
PROC: 0JH60WZ Insertion of Totally Implantable Vascular Access Device into Chest Subcutaneous Tissue and Fascia, Open Approach (ICD-10-PCS; 2018-07-20 16:05)
PROC: 04V23DZ Restriction of Gastric Artery with Intraluminal Device, Percutaneous Approach (ICD-10-PCS; 2018-07-20 16:05)
PROC: 02H633Z Insertion of Infusion Device into Right Atrium, Percutaneous Approach (ICD-10-PCS; 2018-07-20 16:05)
PROC: 30233N1 Transfusion of Nonautologous Red Blood Cells into Peripheral Vein, Percutaneous Approach (ICD-10-PCS; 2018-07-20 16:05)
PROC: 0W3P8ZZ Control Bleeding in Gastrointestinal Tract, Via Natural or Artificial Opening Endoscopic (ICD-10-PCS; 2018-07-20 16:05)
PROC: 30233L1 Transfusion of Nonautologous Fresh Plasma into Peripheral Vein, Percutaneous Approach (ICD-10-PCS; 2018-07-20 16:05)
PROC: 30233K1 Transfusion of Nonautologous Frozen Plasma into Peripheral Vein, Percutaneous Approach (ICD-10-PCS; 2018-07-20 16:05)
DX: C16.9 Malignant neoplasm of stomach, unspecified (principal); K25.0 Acute gastric ulcer with hemorrhage; N17.9 Acute kidney failure, unspecified; K92.0 Hematemesis; N18.2 Chronic kidney disease, stage 2 (mild); D50.0 Iron deficiency anemia secondary to blood loss (chronic); E78.5 Hyperlipidemia, unspecified; R55 Syncope and collapse; I12.9 Hypertensive chronic kidney disease with stage 1 through stage 4 chronic kidney disease, or unspecified chronic kidney disease; E11.22 Type 2 diabetes mellitus with diabetic chronic kidney disease; N18.9 Chronic kidney disease, unspecified; Z79.4 Long term (current) use of insulin
CPT/HCPCS: 36415; 36430; 71045; 71250; 74176; 74181; 76775; 80048; 80053; 80069; 80307; 81001; 81003; 82378; 82550; 82553; 82570; 82728; 82962; 83036; 83540; 83615; 83690; 83735; 83880; 84100; 84439; 84443; 84466; 84484; 85014; 85018; 85025; 85045; 85049; 85378; 85610; 85670; 85730; 86644; 86850; 86900; 86901; 86920; 87081; 88305; 88312; 88313; 93005; 93306; 93971; 99291-25; J9190